=== PATIENT | female | born 1995 ===

== ENCOUNTER 2016-11-12 14:01 | Emergency (ER) | payer MEDICAID ==
--- NOTE | 2016-11-12 15:55 | UC ---
Complaint Female HPI - HPI Summary HPI Summary: pt presents with c/o of maloderous vaginal discharge X 3 days. Pt reports that the vaginal discharege smells liek "bleach" . Pt has new sex partner, pt reports using nuva ring and no condoms. Pt is concerned about STD exposure and possible . - History Of Current Complaint Chief Complaint: [facility] Stated Complaint: PERSONAL Time Seen by Provider: 11/12/16 15:26 Hx Obtained From: Patient Hx Last Menstrual Period: 10/10/16 ?: No Onset/Duration: Gradual Onset, Lasting Days Timing: Constant Severity Initially: Mild Severity Currently: Mild Aggravating Factor(s): Nothing Associated Signs And Symptoms: Positive: Vaginal Discharge - maloderous, bleach odor - Risk Factors Ovarian Torsion Risk Factor: Reproductive Age - Allergies/Home Medications Allergies/Adverse Reactions: Allergies Allergy/AdvReac Type Severity Reaction Status Date / Time No Known Allergies Allergy Verified 11/12/16 15:07 Home Medications: Home Medications NK [No Home Medications Reported] 11/12/16 [History Confirmed 11/12/16] PMH/Surg Hx/FS Hx/Imm Hx Previously Healthy: Yes - Surgical History Surgical History: None - Family History Known Family History: Positive: Cardiac Disease - Social History Occupation: Student Alcohol Use: Occasionally Substance Use Type: None Smoking Status (MU): Never Smoked Tobacco Review of Systems Constitutional: Negative Skin: Negative Eyes: Negative ENT: Negative Respiratory: Negative Cardiovascular: Negative Gastrointestinal: Negative Genitourinary: Other - vaginal discharge Motor: Negative Neurovascular: Negative Musculoskeletal: Negative Neurological: Negative Psychological: Negative All Other Systems Reviewed And Are Negative: Yes Physical Exam Triage Information Reviewed: Yes Appearance: Well-Appearing Vital Signs: Initial Vital Signs Temp 98.3 F 11/12/16 15:07 Pulse 74 11/12/16 15:07 Resp 16 11/12/16 15:07 BP 103/55 11/12/16 15:07 Pulse Ox 98 11/12/16 15:07 Vital Signs Reviewed: Yes Respiratory Exam: Normal Respiratory: Positive: No respiratory distress Abdominal Exam: Normal Abdomen Description: Positive: Other: - vaginal vault with menstrual blood, OS visualized , cervix pink, non friable, no odor noted Musculoskeletal Exam: Normal Neurological Exam: Normal Psychological Exam: Normal Skin Exam: Normal Complaint Female Dx - Differential Dx/Diagnosis Differential Diagnosis/HQI/PQRI: Sexually Transmitted Disease Provider Diagnoses: normal exam. risk of STD exposure Discharge - Discharge Plan Condition: Stable Disposition: HOME Patient Education Materials: Normal Exam (ED) Referrals: [facility] [place] [facility] [Outside]
--- NOTE | 2016-11-14 07:52 | UC ---
Progress - Progress Note Progress Note: CULTURE + FOR GARDNERELLA / BV AND YEAST WILL ERX FLAGYL AND DIFLUCAN
== END 2016-11-12 16:08 | disposition home or self-care (01) ==
LOC: UCCORT 14:01
DX: B37.3 Candidiasis of vulva and vagina (principal); N76.0 Acute vaginitis; B96.89 Other specified bacterial agents as the cause of diseases classified elsewhere; Z72.51 High risk heterosexual behavior
CPT/HCPCS: 81003; 84702; 87480; 87491; 87510; 87591; 87660; 99202; G0463